=== PATIENT | male | born 1985 | race Caucasian/White ===

== ENCOUNTER 2021-12-04 16:26 | Emergency (ER) | payer OTHER ==
[~2021-12-04] VITALS: Ht 172.7 cm; Wt 193.3 kg
[2021-12-04] MEDS ORDERED: SODIUM CHLORIDE 0.9% 1000ML 1,000 ML IV STA (16:45)
[2021-12-04] MEDS ORDERED: CEFTRIAXONE 1 GM VIAL IV ONE (17:15)
[2021-12-04] MEDS ORDERED: IBUPROFEN200 MG PO (17:18)
[2021-12-04] MEDS ORDERED: CEFDINIR300 MG PO (17:18)
[2021-12-04] MEDS ORDERED: PROBIOTIC & AC1 EACH PO (17:18)
[2021-12-04] MEDS ORDERED: SODIUM CHLORIDE 0.9% 1000ML 1,000 ML ONE (17:25)
[2021-12-04] MEDS ORDERED: CEFTRIAXONE 1 GM VIAL ONE (17:26)
== END 2021-12-04 18:30 | disposition home or self-care (01) ==
LOC: FSED 16:33
DX: R30.0 Dysuria (principal); N30.91 Cystitis, unspecified with hematuria; I10 Essential (primary) hypertension; E11.9 Type 2 diabetes mellitus without complications
CPT/HCPCS: 74176; 87400; 96374; 99284; J0696; J7030